=== PATIENT | male | born 1980 | race Caucasian/White ===

== ENCOUNTER 2022-01-27 21:26 | Emergency (ER) | payer OTHER ==
[~2022-01-27] VITALS: Ht 180.3 cm; Wt 131.5 kg
[2022-01-27 21:50] VITALS: BP 157/98
--- NOTE | 2022-01-27 21:53 | NUR ---
to lobby a/w bed ambulatory
--- NOTE | 2022-01-27 22:35 | NUR ---
PT CALLED IN LOBBY AND OUTSIDE BY DR. RUBIO WITH NO ANSWER.
--- NOTE | 2022-01-27 22:37 | NUR ---
PT CALLED ON PERSONAL PHONE WITH NO ANSWER AT THIS TIME.
--- NOTE | 2022-01-27 22:48 | NUR ---
PT CALLED WITH NO ANSWER IN LOBBY OR OUTSIDE. PATIENT LEFT WITHOUT BEING SEEN BY DR. RUBIO. NO FURTHER CARE PROVIDED FOR PATIENT.
[2022-01-28] MEDS ORDERED: METF-1243 PO ×2 (15:02→15:11)
== END 2022-01-27 22:48 | disposition left against medical advice (07) ==
LOC: MED 21:26
DX: R10.9 Unspecified abdominal pain (principal); Z53.21 Procedure and treatment not carried out due to patient leaving prior to being seen by health care provider

== ENCOUNTER 2022-01-28 11:27 | Emergency (ER) | payer OTHER ==
[~2022-01-28] VITALS: Ht 180.3 cm; Wt 121.8 kg
[2022-01-28 11:37] VITALS: BP 153/108
--- NOTE | 2022-01-28 12:21 | NUR ---
pt ambulated to bed 12
[2022-01-28] MEDS ORDERED: MORPHINE SULFATE 4 MG/ML SYR IVP ONE (12:45)
[2022-01-28] MEDS ORDERED: KETOROLAC 30 MG/ML VIAL IVP ONE (12:45)
[2022-01-28] MEDS ORDERED: NACL 0.9% 1,000 ML IV ONE (12:45)
[2022-01-28 13:19] LABS: APPEARANCE,URINE CLEAR (CLEAR); BILIRUBIN,URINE NEGATIVE (NEGATIVE); BLOOD, URINE NEGATIVE (NEGATIVE); COLOR,URINE YELLOW (YELLOW); LEUKOCYTE ESTERASE ,URINE NEGATIVE (NEGATIVE); NITRITE, URINE NEGATIVE (NEGATIVE); UGLUCOSE 3+ (NEGATIVE)
[2022-01-28 13:57] LABS: BASOPHILS % (AUTO) 0.4 % (0.0-2.0); EOSINOPHILS # (AUTO) 0.2 K/uL (0-0.4); EOSINOPHILS % (AUTO) 2.4 % (0.0-4.0); HEMATOCRIT 45.4 % (36-52); HEMOGLOBIN 15.4 g/dL (12.0-18.0); MEAN CORPUSCULAR HEMOGLOBIN 27 pg (27-31); MEAN CORPUSCULAR HGB CONC 34 g/dL (33-37); MEAN CORPUSCULAR VOLUME 80.7 fL (80-94); MONOCYTES # (AUTO) 0.7 K/uL (0.8-1.0); MONOCYTES % (AUTO) 6.9 % (1.7-9.3); NEUTROPHILS # (AUTO) 6.9 K/uL (1.8-7.7); NEUTROPHILS % (AUTO) 70.3 % (42.2-75.2); PLATELET COUNT (AUTO) 278 K/uL (140-450); RED BLOOD CELL COUNT(AUTO) 5.63 MIL/uL (4.20-6.10); RED CELL DISTRIBUTION WIDTH 13.4 % (11.6-13.7); WHITE BLOOD COUNT (AUTO) 9.8 K/uL (4.8-10.8)
[2022-01-28 14:42] LABS: ALBUMIN 3.1 g/dL (3.4-5.0); ANION GAP 7.2 (8-16); CARBON DIOXIDE 30.1 mmol/L (21-32); CREATININE 0.8 mg/dL (0.6-1.3); POTASSIUM 4.3 mmol/L (3.5-5.1); TOTAL BILIRUBIN 0.3 mg/dL (0.0-1.0)
[2022-01-28] MEDS ORDERED: METF-1243 PO ×2 (15:02→15:11)
[2022-01-28 15:50] VITALS: BP 143/92
--- NOTE | 2022-01-28 15:50 | NUR ---
Patient discharged with v/s stable. Written and verbal after care instructions given and explained. Patient alert, oriented and verbalized understanding of instructions. Ambulatory with steady gait. All questions addressed prior to discharge. ID band removed. Patient advised to follow up with PMD. Rx of METFORMIN given. Patient educated on indication of medication including possible reaction and side effects. Opportunity to ask questions provided and answered.
--- NOTE | 2022-01-28 15:57 | NUR ---
CALLED FOR PATIENT TO RETURN FOR ACCU CHECK, PATIENT STATED HE WAS GOING TO [facility] HOME ADMISSIONS DIRECTOR HIS CHILDREN PRIOR TO COMING FOR THE ACCU CHECK
== END 2022-01-28 15:50 | disposition home or self-care (01) ==
LOC: MED 11:27
DX: R10.12 Left upper quadrant pain (principal); M54.9 Dorsalgia, unspecified; E11.65 Type 2 diabetes mellitus with hyperglycemia; Z79.84 Long term (current) use of oral hypoglycemic drugs
CPT/HCPCS: 36415; 74176; 80053; 81003; 83690; 85025; 96361; 96374; 96375; 99284; J1885; J2270; J7030

== ENCOUNTER 2023-11-08 21:04 | Emergency (ER) | payer OTHER ==
[~2023-11-08] VITALS: Ht 180.3 cm; Wt 122.9 kg
[~2023-11-08 21:04] MED LIST: METF-1243 PO
[2023-11-08 21:14] VITALS: BP 130/89; PULSE 115; RESP 28; TEMP 97.4; O2SAT 97
[2023-11-08 22:15] LABS: BASOPHILS # (AUTO) 0.1 K/uL (0.00-0.22); BASOPHILS % (AUTO) 0.7 % (0.0-2.0); EOSINOPHILS # (AUTO) 0.1 K/uL (0-0.4); HEMATOCRIT 44.2 % (36-52); HEMOGLOBIN 14.7 g/dL (12.0-18.0); LYMPHOCYTES % (AUTO) 15.2 % (20.5-51.1); MEAN CORPUSCULAR HEMOGLOBIN 28 pg (27-31); MEAN CORPUSCULAR HGB CONC 33 g/dL (33-37); MEAN CORPUSCULAR VOLUME 82.4 fL (80-94); MONOCYTES % (AUTO) 7.3 % (1.7-9.3); NEUTROPHILS # (AUTO) 10.1 K/uL (1.8-7.7); NEUTROPHILS % (AUTO) 75.8 % (42.2-75.2); PLATELET COUNT (AUTO) 257 K/uL (140-450); RED BLOOD CELL COUNT(AUTO) 5.37 MIL/uL (4.20-6.10); RED CELL DISTRIBUTION WIDTH 13.9 % (11.6-13.7); WHITE BLOOD COUNT (AUTO) 13.3 K/uL (4.8-10.8)
[2023-11-08 22:27] LABS: ANION GAP 9.4 (8-16); CALCIUM 8.3 mg/dL (8.5-10.1); CARBON DIOXIDE 26.4 mmol/L (21-32); CREATININE 0.9 mg/dL (0.6-1.3); POTASSIUM 3.8 mmol/L (3.5-5.1)
[2023-11-08 22:45] LABS: MAGNESIUM 1.4 mg/dL (1.8-2.4); PHOSPHORUS 4.6 mg/dL (2.5-4.9)
[2023-11-09] MEDS ORDERED: MAG SULF 2000 MG/WATER PREMIX 50 ML IV ONE (00:35)
[2023-11-09] MEDS ORDERED: ALBUTEROL 0.083% 2.5 MG/3 ML NEBU INH ONE (00:35)
[2023-11-09] MEDS ORDERED: POTASSIUM CHLORIDE 10 MEQ TABER PO ONE (00:35)
[2023-11-09 00:37] LABS: FLU A ANTIGEN negative (NEGATIVE); FLU B ANTIGEN NEGATIVE (NEGATIVE)
[2023-11-09 00:47] VITALS: BP 130/89; PULSE 110; RESP 28; TEMP 97.4; O2SAT 95
== END 2023-11-09 00:39 | disposition left against medical advice (07) ==
LOC: MED 21:04
DX: R09.02 Hypoxemia (principal); I50.9 Heart failure, unspecified; Z20.822 Contact with and (suspected) exposure to COVID-19; R00.0 Tachycardia, unspecified; E11.9 Type 2 diabetes mellitus without complications; Z79.899 Other long term (current) drug therapy
CPT/HCPCS: 36415; 71045; 80048; 83735; 83880; 84100; 84484; 85025; 87426; 87804; 93005; 99285; Q0092